=== PATIENT | female | born 2000 | race Caucasian/White ===

== ENCOUNTER 2020-06-30 06:51 | Outpatient (NON) | payer OTHER, SELFPAY ==
[2020-07-01 00:15] LABS: SARS-CoV-2 RNA PCR Negative
== END 2020-06-30 06:52 ==
PROVIDERS: PCP Family Medicine; Visit Provider Physician Assistant
DX: Z20.822 Contact with and (suspected) exposure to COVID-19 (principal); R09.89 Other specified symptoms and signs involving the circulatory and respiratory systems
CPT/HCPCS: C9803; U0003; U0005

== ENCOUNTER 2020-07-10 13:31 | Emergency (ER) | payer OTHER, SELFPAY ==
--- NOTE | ~2020-07-10 | XR_ITS ---
EXAMINATION: XR toe 5th RT min 2V EXAM DATE: 07/10/2020 14:00 INDICATION: hit toe on base of a night stand, pain on distal toe. TECHNIQUE: Right 5th toe frontal, lateral and oblique projections obtained and reviewed. There is no prior study for comparison. FINDINGS: There is conjoined right 5th middle and distal 5th phalanx. There are no acute fractures o r dislocations identified. There is no subcutaneous gas. The soft tissue is unremarkable. There a re no radiopaque foreign bodies. IMPRESSION: No acute osseous findings. Reviewed, dictated and finalized at location A. O CALLER IMPRESSION: No acute osseous findings.
[2020-07-10 13:50] VITALS: BP 128/80; PULSE 87; RESP 18; TEMP 36.8; O2SAT 99
--- NOTE | 2020-07-10 13:56 | ED.LOWEXIN ---
HPI - Extremity Injury (Lower) General Chief Complaint: Extremity Injury, Lower Stated Complaint: R/foot toe injury Source: patient and RN notes reviewed Limitations: no limitations History of Present Illness HPI Narrative: The obese patient, previously mostly healthy, presents with right foot pain. Patient states yesterday she struck her small toe on home furnishings, resulting in distal pain. Symptoms are mild, worse with activity, better with rest, and associated with a small, well approximated skin avulsion. Patient requests refill of her thyroxine, also. Related Data Home Medications Medication Instructions Recorded Confirmed albuterol sulfate 90 mcg/actuation 1 puff INHALATION Q4H PRN 05/01/19 07/10/20 aerosol inhaler Allergies Allergy/AdvReac Type Severity Reaction Status Date / Time buspirone AdvReac Intermediate Nausea and Verified 07/10/20 13:54 Vomiting Review of Systems Review of Systems: Narrative: General/Constitutional: No weight loss,fever Eyes: N0: Redness,discharge Ears/Nose/Throat: No: Epistaxis,ear discharge Respiratory: Denies: Hemoptysis Gastrointestinal: No Vomiting, Bleeding-rectal Skin: No Lumps, eruption Neurologic: No Focal Weakness,Sz Hematologic: Denies: Petechiae/Purpura Psychiatric: No: Suicida ideationl All Other Systems: Reviewed and Negative [facility] Past Medical History Medical History (Updated 07/10/20 @ 14:15 by Yousif Maddox MD) Acquired autoimmune hypothyroidism Allergic asthma Gynecomastia, female MDD (major depressive disorder) Family History Family History Mother Patient's mother is in good health Father Patient's father is in good health Sibling Patient's sister is in good health Social History Social History (Updated 02/18/20 @ 16:39 by Yaneth Newsome) Social History: Single Smoking status: Current every day smoker Tobacco type: cigarettes and e-cigarettes/vaping Second hand tobacco smoke exposure: Yes Smoking end date: 06/19/16 Alcohol intake: current Drinks per week: 3 Substance use: never Substance use type: does not use Gender identity (if verbalized by the patient): Female Comments At time of signature, agree with nursing past medical, surgical, social and family history. There is no relevant family history pertinent to the presenting complaint Exam Narrative: Exam Narrative: General Appearance: Well appearing, Conjunctiva clear Ears: External ear normal, Auditory canal normal Nose: Normal nose, Nares clear Mouth/Throat: Normal appearing, Normal lips, Supple Respiratory: Airway patent, No respiratory distress MS-foot: Normal strength (mostly intact, limited flexion/extension by pain), Tenderness (distally, with mild decreased ROM), no sig swelling , Other (no anterior drawer, no collateral laxity, no Achilles tenderness, no fifth MT tenderness) Skin: Well-healing, fairly approximated skin avulsion at ;warm, Dry, Normal color Neurological: A&O x3, , Normal affect Course Course Emergency Course: Films visualized, interpreted by radiologist, agree, normal see report Vital Signs Vital signs: Vital Signs Temperature 98.3 F 07/10/20 13:50 Pulse Rate 87 07/10/20 13:50 Respiratory Rate 18 07/10/20 13:50 Blood Pressure 128/80 07/10/20 13:50 Pulse Oximetry 99 07/10/20 13:50 Temperature 98.3 F 07/10/20 13:50 Pulse Rate 87 07/10/20 13:50 Respiratory Rate 18 07/10/20 13:50 Blood Pressure 128/80 07/10/20 13:50 Pulse Oximetry 99 07/10/20 13:50 Discharge Plan Discharge Clinical Impression: Sprain of toe, fifth, right Qualifiers: Encounter type: initial encounter Qualified Code(s): S93.504A - Unspecified sprain of right lesser toe(s), initial encounter Patient Disposition: Home, Self-Care Condition: Stable Instructions: Toe Fracture (ED) Additional Instructions: X-ray was good, follow instruct
== END 2020-07-10 14:18 | disposition home or self-care (01) ==
PROVIDERS: Emergency Provider Emergency Medicine; PCP Family Medicine
DX: S93.504A Unspecified sprain of right lesser toe(s), initial encounter (principal); W22.03XA Walked into furniture, initial encounter; F17.200 Nicotine dependence, unspecified, uncomplicated; E06.3 Autoimmune thyroiditis
CPT/HCPCS: 73660; 99213; G0463

== ENCOUNTER 2020-08-31 15:33 | Outpatient (CLI) | payer OTHER, SELFPAY | END 2020-08-31 15:34 | disposition home or self-care (01) | LOC: ANHCOVIDVC 15:33 | PROVIDERS: PCP Family Medicine | DX: Z23 Encounter for immunization (principal) | CPT/HCPCS: 0001A; 91300 ==

== ENCOUNTER 2020-09-21 15:33 | Outpatient (CLI) | payer OTHER, SELFPAY | END 2020-09-21 15:34 | disposition home or self-care (01) | LOC: ANHCOVIDVC 15:33 | PROVIDERS: PCP Family Medicine | DX: Z23 Encounter for immunization (principal) | CPT/HCPCS: 0002A; 91300 ==

== ENCOUNTER → 2020-12-08 02:11 | Outpatient (CLI) | payer OTHER, SELFPAY ==
[2020-12-09 14:17] LABS: SARS-CoV-2 RNA PCR Negative
== END ==
PROVIDERS: PCP Family Medicine; Visit Provider Obstetrics & Gynecology
DX: Z01.812 Encounter for preprocedural laboratory examination (principal); Z20.822 Contact with and (suspected) exposure to COVID-19
CPT/HCPCS: C9803; U0003; U0005

== ENCOUNTER 2020-12-11 01:26 | Day surgery (SDC) | payer OTHER, MEDICAID, SELFPAY ==
[2020-12-07 09:14] VITALS: BMI 36.6
--- NOTE | 2020-12-10 12:12 | P.PNAN_ITS ---
Anes - Initial Pre Proc Eval Procedure: Operation Date: 12/11/20 08:30 Proposed Procedures p Diagnostic Laparoscopy, Left Ovarian Cystectomy - Javier Rios MD Date/Time: 12/10/20 12:12 Surgeon: Javier Rios MD Pre Op Diagnosis: pelvic pain Patient Data Age: 20 Gender: F Height: 1.57 m Weight: 90.9 kg Allergies Allergy/AdvReac Type Severity Reaction Status Date / Time buspirone AdvReac Intermediate Nausea and Verified 12/07/20 09:10 Vomiting Home Medications Medication Instructions Recorded Confirmed Type albuterol sulfate 90 mcg/actuation 1 puff INHALATION Q4H PRN 05/01/19 12/07/20 History aerosol inhaler cetirizine [Zyrtec] 10 mg PO DAILY PRN 12/07/20 12/07/20 History cholecalciferol (vitamin D3) 25 mcg PO HS 12/07/20 12/07/20 History fluoxetine 20 mg PO HS 12/07/20 12/07/20 History levothyroxine 75 mcg PO HS 12/07/20 12/07/20 History Patient hx anesthesia problems: none Family hx anesthesia problems: none [facility] Past Medical History Medical History (Updated 12/10/20 @ 12:13 by Eddie Noriega MD) Acquired autoimmune hypothyroidism Allergic asthma Asthma Gynecomastia, female MDD (major depressive disorder) Obesity Family History Family History Mother Patient's mother is in good health Father Patient's father is in good health Sibling Patient's sister is in good health Social History Social History (Updated 12/04/20 @ 14:57 by Yaneth Newsome) Social History: Single Smoking status: Former smoker Tobacco type: cigarettes and e-cigarettes/vaping Second hand tobacco smoke exposure: Yes Smoking end date: 06/19/16 Additional smoking assessment comments: STATES SOCIAL SMOKER FOR COUPLE YRS = 1PK/2WEEKS/QUIT 2016, NOW USES E-CIG Alcohol intake: current Drinks per week: 1 Substance use: never Substance use type: does not use Living arrangements: with family Additional living arrangements comments: Pt and her boyfriend live together. Additional occupation/education comments: Pt takes online classes. Pt is also, in between jobs. Gender identity (if verbalized by the patient): Female Spiritual care concerns: No Anes - Eval Final PreProcedure Day of Procedure 12/10/20 12:12 Patient weight: obese Heart: regular rate and rhythm Lungs: clear to auscultation and normal air movement Airway: Mallampati scale class II Neurological: alert and oriented Last oral intake: >/= 8 hours ASA classification: II Emergent: no Anesthetic plan: proceed Anesthesia type and monitoring: general ETT Informed Consent: The patient's anesthetic plan and its attendant risks and benefits were discussed with the patient/family/POA. Questions were solicited and answers provided to the satisfaction of the patient/family/POA.
[2020-12-11] VITALS (11 sets, daily range): BP systolic 102–116; BP diastolic 52–75; PULSE 57–100; RESP 12–20; TEMP 35.9–36.2; O2SAT 93–100
[2020-12-11] MEDS: LACTATED RINGERS 1,000 ML 30 ML IV CONT ×2 (07:13→09:42)
[2020-12-11] MEDS: KETOROLAC 15 MG/ML VIAL (*BKC) IV PUSH (07:14)
[2020-12-11] MEDS: ACETAMINOPHEN 500 MG TABLET 1000 MG PO (07:14)
--- NOTE | 2020-12-11 07:50 | WPDHPUPDATE1 ---
History and Physical Update Update Date/Time: 12/11/20 07:50 History and Physical has been reviewed, including an updated exam of the patient. There are NO changes in the patient's condition. Risks, benefits, and alternatives have been discussed and questions answered. Patient agrees to proceed with procedure.
--- NOTE | 2020-12-11 08:21 | WPDHPUPDATE1 ---
History and Physical Update Update Date/Time: 12/11/20 08:21 To also perform Left ovarian cystectomy History and Physical has been reviewed, including an updated exam of the patient. There are NO changes in the patient's condition. Risks, benefits, and alternatives have been discussed and questions answered. Patient agrees to proceed with procedure.
--- NOTE | 2020-12-11 09:38 | W.PM.PROC2 ---
Procedure Note - Detailed Date of Procedure 12/11/20 Pre-op Diagnosis pelvic pain, ovarian cyst Post-op Diagnosis same (Paratubal cysts, diffuse peritoneal vascularity) Procedure Performed Diagnostic laparoscopy, peritoneal biopsy, resection of bilateral paratubal cysts. Surgeon Javier Rios MD Anesthesia general Indications Pelvic pain, diffuse vascularity of the peritoneal surface, bilateral paratubal cysts, no ovarian cyst on the left was observed, there was a normal ovary, there was corpus luteum cyst on the right ovary. Findings Bilateral paratubal cyst, diffuse find vascularity over the peritoneal surfaces of the bilateral posterior cul-de-sac and the anterior surfaces of the adnexa and bladder. Description of Procedure The patient was taken to the operating room. She was prepped and draped in the dorsal lithotomy position after induction general anesthesia. A 5 mm incision was made with a scalpel on the abdominal skin in the left upper quadrant of the abdomen. A 5 mm trocar was inserted into the intra-abdominal cavity under direct visualization the scope. In the same fashion a 5 mm left lower quadrant trocar was inserted and a 5 mm infraumbilical trocar was inserted. The pelvis was examined and the above findings were noted. There was diffuse vascularity throughout the pelvis on the peritoneal surfaces. Area and the anterior left adnexa was biopsied. Area was raised and transected with scissors and then cauterized. Two paratubal cysts removed. They were each on 1 side the pelvis. These were done with cautery and careful dissection. The pelvis was irrigated. The pneumoperitoneum was reduced. The trocars were removed. Skin was closed with subcuticular 4 micro. The patient's incisions were covered with Dermabond. She was taken recovery room in stable condition. Sponge lap and needle counts were correct x2. Estimated Blood Loss 20 Complications No immediate complications Condition stable Disposition same day
[2020-12-11] MEDS: oxyCODONE HCL (*CRX) 5 MG TAB IR PO (11:21)
--- NOTE | 2020-12-11 13:01 | SUR.PHASEII ---
RN called pharmacy to see why first prescription request was denied. Patient's insurance would only cover a 7 day supply. So RN said to go ahead and fill that and if patient needs more medicine to call Dr. Rios's office.
== END 2020-12-11 13:10 | disposition home or self-care (01) ==
PROVIDERS: PCP Family Medicine; Visit Provider Obstetrics & Gynecology
PROC: (CPT 49320; principal; 2020-12-11 08:30)
DX: N83.8 Other noninflammatory disorders of ovary, fallopian tube and broad ligament (principal); N83.11 Corpus luteum cyst of right ovary; K66.8 Other specified disorders of peritoneum; R10.2 Pelvic and perineal pain; E06.3 Autoimmune thyroiditis; J45.909 Unspecified asthma, uncomplicated; F32.9 Major depressive disorder, single episode, unspecified; Z79.51 Long term (current) use of inhaled steroids; F17.290 Nicotine dependence, other tobacco product, uncomplicated; E66.9 Obesity, unspecified; Z68.36 Body mass index [BMI] 36.0-36.9, adult
CPT/HCPCS: 58662; 88305; A9270; C9803; J0330; J1100; J1170; J1885; J2250; J2405; J2704; J2710; J3010; J7030; J7120; U0003; U0005

== ENCOUNTER 2020-12-12 09:09 | Observation (INO) | payer OTHER, MEDICAID, SELFPAY ==
[2020-12-12] VITALS (18 sets, daily range): BP systolic 117–136; BP diastolic 61–79; PULSE 65–100; RESP 12–23; TEMP 36.1–36.5; O2SAT 97–100; BMI 38.1
--- NOTE | ~2020-12-12 | CT_ITS ---
EXAMINATION: CT abdomen pelvis w con DATE: 12/12/2020 10:52 INDICATION: Sudden ovarian cyst removal. Abdominal pain. TECHNIQUE: Computed tomography (CT) of the abdomen and pelvis was performed with 100 cc Omnipaque 350 intravenous contrast. The dose-length product was 1060.81 mGy-cm. Automated exposure control and ite rative reconstruction technique were employed. COMPARISON: None. FINDINGS: Lung bases are unremarkable. Heart size normal. No significant pleural or pericardial effus ion. The liver, spleen, pancreas, adrenal glands and kidneys are unremarkable. Gallbladder is present . There is an IUD in the pelvis. No significant vascular abnormality. Nonobstructive bowel gas patter n. Normal appendix. Small amount of subcutaneous gas in the left anterior abdominal wall, consistent with recent surgery. Bladder is unremarkable. Small amount of free air in the nondependent aspect of the lower abdomen anteriorly and along the anterior liver surface, consistent with recent surgery. No acute osseous abnormality. IMPRESSION: 1. Postoperative changes characterized by small amount of free intraperitoneal air and subcutaneous g as in the left lower anterior abdominal wall. Reviewed, dictated and finalized at location A. IMPRESSION: 1. Postoperative changes characterized by small amount of free intraperitoneal air and subcutaneous gas in the left lower anterior abdominal wall.
--- NOTE | 2020-12-12 09:37 | ED.ABDPAIN ---
HPI - Abdominal Pain General Chief Complaint: Abdominal Pain Stated Complaint: Post Op Complications Time Seen by Provider: 12/12/20 09:37 Source: patient Mode of arrival: ambulatory Limitations: no limitations History of Present Illness HPI narrative: Patient is a 20-year-old female with recent right ovarian cyst removal by Dr. Rios on 12/11, who presents for evaluation of lower abdominal pain, nausea and vomiting. Patient has felt unwell over the past 24 hours. Patient reports sharp pain in the suprapubic area. Pain is severe. She denies dysuria or hematuria, does report pressure with urination. She denies any fever or chills. She reports nausea and one episode of emesis this morning. She denies abdominal distention or back pain. No significant bruising. Incision sites are clean and dry without discharge. Related Data Home Medications Medication Instructions Recorded Confirmed albuterol sulfate 90 mcg/actuation 1 puff INHALATION Q4H PRN 05/01/19 12/11/20 aerosol inhaler cetirizine [Zyrtec] 10 mg PO DAILY PRN 12/07/20 12/11/20 cholecalciferol (vitamin D3) 25 mcg PO HS 12/07/20 12/11/20 fluoxetine 20 mg PO HS 12/07/20 12/11/20 levothyroxine 75 mcg PO HS 12/07/20 12/11/20 Allergies Allergy/AdvReac Type Severity Reaction Status Date / Time buspirone AdvReac Intermediate Nausea and Verified 12/12/20 09:23 Vomiting Review of Systems Review of Systems: Narrative: CONSTITUTIONAL: Denies fever, chills, or sweats. EYES: Denies visual changes, redness, or discharge. ENT: Denies rhinorrhea, congestion, sore throat, or otalgia. CARDIOVASCULAR: Denies chest pain, palpitations, or edema. RESPIRATORY: Denies cough or dyspnea. GASTROINTESTINAL: Reports abdominal pain, nausea and vomiting GENITOURINARY: Denies dysuria or hematuria. SKIN: Denies rash or itching. MUSCULOSKELETAL: Denies back pain, joint pain, or myalgia. NEUROLOGIC: Denies headache, numbness, or weakness. [facility] Past Medical History Medical History Acquired autoimmune hypothyroidism Allergic asthma Asthma Gynecomastia, female MDD (major depressive disorder) Obesity Family History Family History Mother Patient's mother is in good health Father Patient's father is in good health Sibling Patient's sister is in good health Social History Social History Social History: Single Smoking status: Former smoker Tobacco type: cigarettes and e-cigarettes/vaping Second hand tobacco smoke exposure: Yes Smoking end date: 06/19/16 Additional smoking assessment comments: STATES SOCIAL SMOKER FOR COUPLE YRS = 1PK/2WEEKS/QUIT 2017, NOW USES E-CIG Alcohol intake: current Drinks per week: 1 Substance use: never Substance use type: does not use Additional living arrangements comments: Pt and her boyfriend live together. Additional occupation/education comments: Pt takes online classes. Pt is also, in between jobs. Gender identity (if verbalized by the patient): Female Spiritual care concerns: No Exam Narrative: Exam Narrative: GENERAL: Awake, alert, conversant HEAD: Normocephalic, atraumatic. EYES: PERRLA and EOMI. ENT: Nares clear, no rhinorrhea or epistaxis. Mucous membranes moist. NECK: Supple. CHEST: No respiratory distress, breathing even and non labored HEART: Regular rate, sinus rhythm ABDOMEN:Non distended, tender in the suprapubic area and right lower quadrant, laparoscopic incision sites are clean, dry, intact without erythema EXTREMITIES: Normal range of motion. No edema. SKIN: Pale, warm, dry, no rash. NEURO:No focal deficits. Alert and oriented x3 Course Vital Signs Vital signs: Vital Signs Temperature 36.5 C 12/12/20 09:15 Pulse Rate 85 12/12/20 09:15 Respiratory Rate 17 12/12/20 09:15 Blood Pressure 136/79 12/12/20 09:15 Pulse
[2020-12-12 09:50] LABS: Basophils Percent Auto 0.2 % (0.2-1.2); Hematocrit 41.8 % (37.0-47.0); Hemoglobin 14.1 g/dL (12.0-15.0); Immature Granulocyte Absolute 0.05 K/mm3 (0.00-0.031); Immature Granulocyte Percent A 0.3 % (0-0.5); Lymphocytes Absolute Auto 1.36 K/mm3 (0.9-3.2); Lymphocytes Percent Auto 9.2 % (18.3-44.2); Mean Corpuscular HGB Conc 33.7 g/dl (32-36); Mean Corpuscular Hemoglobin 31.4 pg (26-34); Mean Corpuscular Volume 93.1 fl (80-100); Mean Platelet Volume 10.3 fl (7.4-10.4); Monocytes Absolute Auto 1.1 K/mm3 (0.1-0.6); Monocytes Percent Auto 7.5 % (2.6-8.5); Neutrophils Absolute Auto 12.2 K/mm3 (1.3-6.7); Neutrophils Percent Auto 82.8 % (45.5-73.1); Platelet Count Result 292 k/mm3 (150-375); Red Blood Count 4.49 M/mm3 (4.2-5.4); Red Cell Distribution Width 12.8 % (11.5-14.5); White Blood Count 14.8 K/mm3 (4.5-10.0)
[2020-12-12 09:59] LABS: Alanine Aminotransferase 16 U/L (4-35); Albumin Level 4.3 g/dL (3.5-5.1); Alkaline Phosphatase 49 U/L (38-126); Anion Gap 10 mmol/L (8-16); Aspartate Amino Transferase 23 U/L (14-36); Bilirubin,Total 0.3 mg/dL (0.2-1.3); Blood Urea Nitrogen 9 mg/dL (7-17); Calcium 9.1 mg/dL (8.4-10.2); Carbon Dioxide 24 mmol/L (22-30); Chloride 106 mmol/L (98-107); Estimated CRCL calculation 133 ml/min; Estimated Glomerular Filt Rate > 60; Glucose 102 mg/dL (65-105); Lipase 65 U/L (23-300); Potassium 3.9 mmol/L (3.4-5.0); Sodium 140 mmol/L (137-145)
[2020-12-12 10:18] LABS: Add Urine Microscopic? YES; Appearance Urine Clear (Clear); Bilirubin Urine Negative (Negative); Blood Urine Negative (Negative); Color Urine Yellow (Yellow); Glucose Urine UA Negative (Negative); Ketones Urine Negative (Negative); Leukocyte Esterase Ur Trace LEU/UL (Negative); Mucus Urine Rare /lpf; Nitrate Urine Negative (Negative); Protein Urine Negative (Negative); RBC Urine 0-2 /hpf (0-2); Specific Grav Ur 1.018 (1.001-1.035); Squamous Epithelial Cell Urine Moderate /hpf (Few); Urobilinogen Urine Negative mg/dL (<2.0); WBC Urine 0-3 /hpf
[2020-12-12] MEDS: ONDANSETRON INJ 4 MG/2 ML VIAL IV PUSH ×2 (10:22→15:13)
[2020-12-12] MEDS: MORPHINE SULFATE (*CRX) 4 MG/ML INJ IV PUSH ×2 (10:24→15:12)
[2020-12-12] MEDS: SODIUM CHLORIDE 0.9% IV 1,000 ML 999 ML IV CONT (10:25)
[2020-12-12] MEDS: HYDROmorphone HCL INJ (*CRX) 1 MG/ML SYR 0.5 MG IV PUSH (13:05)
--- NOTE | 2020-12-12 14:20 | ADMGEN ---
This patient, Mary Alcantar, was admitted to 2 Medical Room 257-. Patient/family oriented to hospital policies and general routines including ID bracelet, bed and alarms, visiting hours, pain management, procedures, bathroom and other care routines, personal items, smoking policy, room service/diet, and visiting hours. Information on how to activate the Rapid Response Team has been discussed. Patient/Family are encouraged to report perceived risks to care and to ask questions if they do not understand what they are told or what they should do.
[2020-12-12] MEDS: LACTATED RINGERS 1,000 ML 125 ML IV CONT (15:13)
--- NOTE | 2020-12-12 17:43 | PM.IMHP ---
H&P: HPI History of Present Illness Date/Time: 12/12/20 17:43 Chief Complaint: pain Narrative: Mary presented to ED this morning with pain s/p LSC yesterday with right ovarian cystectomy. CT normal. Had N/V x1. Pain treated with morphine and dilaudid in ED and was admitted for observation. She has had one bout of diarrhea since. Nausea gone. Tolerating clears. Pain much improved. Was not taking ibuprofen at home, just one dose of norco. Review of Systems Review of Systems: All systems reviewed & are unremarkable except as noted in HPI and below PMFSH Past Medical History Medical History Acquired autoimmune hypothyroidism Allergic asthma Asthma Gynecomastia, female MDD (major depressive disorder) Obesity Family History Family History (Updated 12/12/20 @ 15:08 by Elsa Campbell RN) Mother Cyst of ovary Depression Hypothyroidism History of hysterectomy Asthma Father Migraine Heart attack Hypertension Asthma Sibling Anxiety Depression Patient's sister is in good health Asthma Other Patient's father is in good health Patient's mother is in good health Social History Social History Social History: Single Years smoked: 7 Smoking status: Current every day smoker Tobacco type: e-cigarettes/vaping Second hand tobacco smoke exposure: No Smoking end date: 06/19/16 Additional smoking assessment comments: STATES SOCIAL SMOKER FOR COUPLE YRS = 1PK/2WEEKS/QUIT 2016, NOW USES E-CIG Alcohol intake: current Substance use: never Substance use type: does not use Other substance usage details: 1-2 drinks a month Additional living arrangements comments: Pt and her boyfriend live together. Additional occupation/education comments: Pt takes online classes. Pt is also, in between jobs. Spiritual care concerns: No Meds Home Medications and Allergies Home Medications Medication Instructions Recorded Confirmed Type albuterol sulfate 90 mcg/actuation 1 puff INHALATION Q4H PRN 05/01/19 12/12/20 History aerosol inhaler cetirizine [Zyrtec] 10 mg PO HS 12/07/20 12/12/20 History cholecalciferol (vitamin D3) 25 mcg PO HS 12/07/20 12/12/20 History fluoxetine 20 mg PO HS 12/07/20 12/12/20 History levothyroxine 75 mcg PO HS 12/07/20 12/12/20 History hydrocodone-acetaminophen 1 - 2 tablet PO Q4H PRN #14 tablet 12/11/20 12/12/20 Rx Allergies Allergy/AdvReac Type Severity Reaction Status Date / Time buspirone AdvReac Intermediate Headache Verified 12/12/20 14:52 Vital Signs Vital Signs - 24 hr 12/12/20 09:15 12/12/20 09:32 12/12/20 09:45 Temperature 97.7 F Pulse Rate 85 77 89 Respiratory Rate 17 23 H 23 H Blood Pressure 136/79 Pulse Oximetry 99 98 100 12/12/20 10:09 12/12/20 10:15 12/12/20 10:31 Temperature Pulse Rate 100 65 Respiratory Rate 21 H 15 Blood Pressure Pulse Oximetry 97 99 100 12/12/20 10:56 12/12/20 11:00 12/12/20 11:15 Temperature Pulse Rate 71 69 Respiratory Rate 20 17 Blood Pressure Pulse Oximetry 98 99 98 12/12/20 11:30 12/12/20 11:45 12/12/20 12:00 Temperature Pulse Rate 66 68 68 Respiratory Rate 18 14 18 Blood Pressure Pulse Oximetry 100 100 99 12/12/20 12:15 12/12/20 12:30 12/12/20 12:45 Temperature Pulse Rate 84 74 78 Respiratory Rate 13 12 20 Blood Pressure Pulse Oximetry 100 100 99 12/12/20 13:00 12/12/20 13:15 12/12/20 15:20 Temperature 96.9 F L Pulse Rate 93 98 79 Respiratory Rate 20 23 H 12 Blood Pressure 117/61 Pulse Oximetry 97 97 100 Exam Const: General: no acute distress Resp: Effort & Inspection: normal respiratory effort Auscultation: clear to auscultation bilaterally Cardio: Rate: regular rate Rhythm: regular rhythm GI: GI Palp: Yes Soft to palpation Other: appropriately tender. no rebound or guarding. Neuro: Spee
[2020-12-12] MEDS: WITCH HAZEL 40 PADS 1 PAD TOPICAL (18:32)
[2020-12-12] MEDS: HYDROcodone/acetaminophen (*CRX) 5-325 MG TABLET 1 TAB PO (19:32)
== END 2020-12-12 20:00 | disposition home or self-care (01) ==
LOC: ANHED 12:58 → ANH2MED 13:55
PROVIDERS: Admitting Provider Obstetrics & Gynecology; Emergency Provider Emergency Medicine; PCP Family Medicine; Visit Provider Obstetrics & Gynecology
DX: G89.18 Other acute postprocedural pain (principal); R10.9 Unspecified abdominal pain; R11.2 Nausea with vomiting, unspecified; F17.290 Nicotine dependence, other tobacco product, uncomplicated
CPT/HCPCS: 36415; 74177; 80053; 81001; 81025; 83690; 85025; 96361; 96374; 96375; 96376; 99285; A9270; G0378; J1170; J2270; J2405; J7030; J7120; Q9967

== ENCOUNTER 2021-07-12 13:05 | Outpatient (CLI) | payer OTHER, MEDICAID, SELFPAY ==
--- NOTE | ~2021-07-12 | US_ITS ---
EXAMINATION: US breast RT limited HISTORY: Unspecified lump in the upper outer quadrant of the right breast TECHNIQUE: Limited right breast ultrasound was performed. FINDINGS: There is an approximately 3.5 x 1.7 cm complex hypoechoic area of the right breast at the 1 0:00 location near the nipple which involves the skin and adjacent underlying breast tissue. There is some evidence of mobile internal debris. Overlying skin thickening is noted. IMPRESSION: Findings consistent with small phlegmon/early abscess of the skin and superficial breast correspondin g to the right breast lump. Recommend a trial of antibiotics with clinical follow-up. If there is a p ersistent mass, consider repeat ultrasound and possible aspiration. BI-RADS Category 2: Benign finding(s). Reviewed, dictated and finalized at location A. [employer]ATE [employer] CLEANER IMPRESSION: Findings consistent with small phlegmon/early abscess of the skin and superfici al breast corresponding to the right breast lump. Recommend a trial of antibiot ics with clinical follow-up. If there is a persistent mass, consider repeat ult rasound and possible aspiration. BI-RADS Category 2: Benign finding(s).
== END 2021-07-12 13:06 | disposition home or self-care (01) ==
LOC: ANHIMG 13:11
PROVIDERS: PCP Family Medicine; Visit Provider Advanced Practice Midwife
DX: N63.10 Unspecified lump in the right breast, unspecified quadrant (principal); R92.8 Other abnormal and inconclusive findings on diagnostic imaging of breast
CPT/HCPCS: 76642

== ENCOUNTER 2021-08-11 10:05 | Outpatient (CLI) | payer OTHER, MEDICAID, SELFPAY ==
--- NOTE | ~2021-08-11 | US_ITS ---
CORRECTED REPORT EXAMINATION CHANGED TO US breast cyst asp RT w img. 08/12/2021 sef US breast cyst asp RT w img DATE: 08/11/2021 11:01 INDICATION: Right breast infection, tenderness, erythema TECHNIQUE: Ultrasound imaging at 10:00 near the nipple was performed, revealing a complicated fluid collection measuring up to 5 mm depth and 3 cm transverse dimension. The purpose of the procedure, technique and potential competitions including bleeding were discussed with the patient who verbalized understanding. Timeout procedure was performed. The skin of the breast was prepared with sterile Betadine. Sterile drapes were applied. The area of interest was localized sonographically. 1% lidocaine local anesthetic was administered to the skin and underlying subcutaneous tissues. Using ultrasound guidance, an 18-gauge spinal needle was advanced into the complicated fluid collection. 3 CC of bloody evacuated was aspirated, largely resolving the fluid collections sonographically. The patient was very cooperative and tolerated the procedure very well. COMPARISON: 07/08/2021 limited right breast ultrasound IMPRESSION: 3 CC of bloody fluid aspirated from right breast 10:00 position near nipple was sent to the laboratory for culture and sensitivity. Reviewed, dictated and finalized at Location A. Reviewed, dictated and finalized at location A. ON THERAPIST MTDD IMPRESSION: 3 CC of bloody fluid aspirated from right breast 10:00 position sherlyn r nipple was sent to the laboratory for culture and sensitivity.
== END 2021-08-11 10:06 | disposition home or self-care (01) ==
LOC: ANHIMG 10:11
PROVIDERS: PCP Family Medicine; Visit Provider Surgery
DX: N61.1 Abscess of the breast and nipple (principal)
CPT/HCPCS: 19000; 19083; 76942; 87070; 87205